=== PATIENT | female | born 1965 | race Caucasian/White ===

== ENCOUNTER 2019-04-02 13:14 | Emergency (ER) | payer MEDICARE, SELFPAY ==
[2019-04-02 13:16] VITALS: BP 119/81; PULSE 89; RESP 16; TEMP 36.8; O2SAT 97; BMI 28.3
--- NOTE | 2019-04-02 13:44 | RAD_ITS ---
STUDY: X-RAY - RIGHT HAND REASON FOR EXAM: Female, 53 years old. Pain TECHNIQUE: 3 view(s) of the hand. COMPARISON: None. FINDINGS: There is a minimally displaced fracture at the base of the distal phalanx of the right thumb. The remainder the visualized osseous structures are intact. There are no radiodense foreign bodies. RAD/Hand Min 3 Views IMPRESSION: Minimally displaced fracture at the base of the proximal phalanx of the right thumb. Electronically Signed: Thanh Mario, at 14:24 EDT Tel , Service support ,
--- NOTE | 2019-04-02 13:44 | CT_ITS ---
STUDY: CT CERVICAL SPINE WITHOUT CONTRAST REASON FOR EXAM: Female, 53 years old. FALL LAST NIGHT/HEAD PAIN NO LOC RADIATION DOSAGE (If Supplied By Facility): CTDIvol = ( 25.54 ) mGy, DLP = ( 620.92 ) mGycm TECHNIQUE: The patient was scanned in a multi detector CT scanner. High resolution transaxial imaging was performed. Sagittal and coronal images were reconstructed. Individualized dose optimization techniques were used for this CT. COMPARISON: None FINDINGS: Normal cervical lordosis. There are no demonstrated fractures of the cervical spine. There is mild multilevel endplate spondylosis of the vertebrae. There is multi-level degenerative disc disease with multi-level disc space narrowing. Normal visualized paraspinous soft tissue structures. CT/Spine Cervical without Contras IMPRESSION: No demonstrated fractures. Electronically Signed: Jeannine Cunningham MD at 14:23 EDT Tel , Service support ,
--- NOTE | 2019-04-02 13:44 | CT_ITS ---
STUDY: CT BRAIN WITHOUT CONTRAST REASON FOR EXAM: Female, 53 years old. FALL LAST NIGHT/HEAD PAIN, NO LOC. RADIATION DOSAGE (If Supplied By Facility): CTDIvol = ( 44.99 ) mGy, DLP = ( 779.24 ) mGycm TECHNIQUE: Transaxial CT imaging of the brain was performed without administration of intravenous contrast material. Individualized dose optimization techniques were used for this CT. COMPARISON: No relevant priors. FINDINGS: Normal soft tissue structures. Normal calvarium. Normal size ventricles and extra-axial spaces for the patient's age. Normal white matter tracts of the cerebral hemispheres. Normal basal ganglia and thalami. Normal brainstem. Normal cerebellum. There is no intracranial hemorrhage. There are no findings of an acute ischemic infarction. Right maxillary sinus disease. CT/Brain/Head without Contrast IMPRESSION: No acute intracranial abnormality Electronically Signed: Jeannine Cunningham MD at 14:20 EDT Tel , Service support ,
--- NOTE | 2019-04-02 13:44 | CT_ITS ---
STUDY: CT FACIAL BONES WITHOUT CONTRAST REASON FOR EXAM: Female, 53 years old. FALL LAST NIGHT/HEAD PAIN NO LOC. RADIATION DOSAGE (If Supplied By Facility): CTDIvol = ( 29.38 ) mGy, DLP = ( 620.92 ) mGycm TECHNIQUE: The patient was scanned in a multi detector CT scanner. Sagittal and coronal images were reconstructed. Individualized dose optimization techniques were used for this CT. COMPARISON: None. FINDINGS: Normal soft tissue structures. Normal orbital schwartz and orbital contents. Normal nasal bones and anterior nasal spine. Normal facial bones. There is no demonstrated fracture. There is a right maxillary sinus moderate mucosal thickening of the right maxillary sinus. There is erosive changes of the right maxilla (axial image #30 series 8). CT/Sinus/Facial Bone IMPRESSION: No demonstrate fractures. Right maxilla bone erosions, likely secondary to long-standing dental disease. Moderate right maxillary sinus disease. Electronically Signed: Jeannine Cunningham MD at 14:31 EDT Tel , Service support ,
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
[2019-04-02 16:18] VITALS: BP 134/85; PULSE 77; RESP 16; O2SAT 96
[2019-04-02] MEDS: oxyCODONE 5 MG Tablet PO (16:25)
[2019-04-02 16:31] VITALS: BP 134/85; PULSE 77; RESP 16; O2SAT 96
== END 2019-04-02 16:31 | disposition home or self-care (01) ==
PROVIDERS: Emergency Provider Emergency Medicine
DX: S62.511A Displaced fracture of proximal phalanx of right thumb, initial encounter for closed fracture (principal); S16.1XXA Strain of muscle, fascia and tendon at neck level, initial encounter; S00.83XA Contusion of other part of head, initial encounter; R40.2412 Glasgow coma scale score 13-15, at arrival to emergency department; W01.198A Fall on same level from slipping, tripping and stumbling with subsequent striking against other object, initial encounter; Y93.K1 Activity, walking an animal; Y92.9 Unspecified place or not applicable; Y99.9 Unspecified external cause status; G89.29 Other chronic pain; M51.36 Other intervertebral disc degeneration, lumbar region; F41.9 Anxiety disorder, unspecified; Z79.899 Other long term (current) drug therapy; F17.200 Nicotine dependence, unspecified, uncomplicated; Z88.2 Allergy status to sulfonamides
CPT/HCPCS: 70450; 70486; 72125; 73130; 99283

== ENCOUNTER 2019-04-05 19:44 | Emergency (ER) | payer MEDICARE, SELFPAY ==
[2019-04-05 19:45] VITALS: BP 123/74; PULSE 87; RESP 15; TEMP 36.8; O2SAT 96; BMI 28.3
--- NOTE | 2019-04-05 20:07 | ED.DCSUM_ITS ---
- ER Visit Summary Date of Service: 04/05/19 Chief Complaint: Fall complaining of pain History of Present Illness: The patient is a 53 F who fell on Saturday and injured her face and reportedly has a broken right thumb. She was CAT scan on Saturday including her brain, face and neck all which were negative. States today she fell again at home over a table and landed flat on the floor. Complaining of pain all over. No LOC. She is on no blood thinners. He has chronic pain due to fibromyalgia and degenerative disc disease. Currently states all she takes at home is Motrin. Currently does not have a physician. Physical Examination: Middle-aged female. No acute distress. Vital signs are stable afebrile. HEENT exam she has resolving bruising on her right forehead and chin from her recent fall. No acute dental injury. Jaw is nontender with no malocclusion. Scalp is nontender. C-spine nontender. Trachea midline. TMs are normal bilaterally no hemotympanum. Lungs clear to auscultation bilaterally. Heart regular rhythm no murmur. Chest wall nontender. No crep itance or subcu air or bruising. Abdomen is soft and nontender. Normal bowel sounds no peritoneal signs. Pelvic girdle is intact. She is moving all 4 extremities. There is no gross bony deformity. She is tenderness to her right thumb which she previously broke. She said she took her splint off. Neurologically she is awake and alert with no focal motor deficits. Back the spine is nontender. There is no signs of trauma. Test Results: None Emergency Department Course and Treatment: Patient had recent imaging. She will be given 2 [place] here for pain. Treatment Plan: Tylenol and Motrin for pain. Ice all sore areas. Follow-up with a local primary care physician. Disposition: Discharge Impression: Acute fall Status post recent fall with resolving contusions History of recent thumb fracture History of chronic pain This note was generated with [employer] dictation software. It may contain incorrect words, spelling, and punctuation that were not noted in review of the chart prior to signing ED Disposition - Plan for ED Patient: Referrals: Care Physician,No Primary [Primary Care Provider] -
--- NOTE | 2019-04-05 20:10 | ED.DEP ---
ED Disposition - Plan for ED Patient: Disposition: Home or Assisted Living Instructions: Contusions (Bruises) Referrals: Steve Sheehan MD [STAFF PHYSICIAN] - 1 Week if not improving Additional Instructions: Ice to all sore areas. Tylenol Motrin for pain. Follow-up if not improving.
[2019-04-05] MEDS: HYDROcodone Bitartrate/Apap 5/325 Tablet PO (20:17)
[2019-04-05 20:25] VITALS: BP 123/74; PULSE 87; RESP 16; O2SAT 96
== END 2019-04-05 20:26 | disposition home or self-care (01) ==
LOC: ED 20:15
PROVIDERS: Emergency Provider Emergency Medicine
DX: S00.83XA Contusion of other part of head, initial encounter (principal); W01.0XXA Fall on same level from slipping, tripping and stumbling without subsequent striking against object, initial encounter; Y93.9 Activity, unspecified; Y92.9 Unspecified place or not applicable; Y99.9 Unspecified external cause status; S62.501D Fracture of unspecified phalanx of right thumb, subsequent encounter for fracture with routine healing; W19.XXXD Unspecified fall, subsequent encounter; M79.7 Fibromyalgia; G89.29 Other chronic pain; Z72.0 Tobacco use; Z79.82 Long term (current) use of aspirin
CPT/HCPCS: 99283

== ENCOUNTER → 2019-07-15 15:42 | Outpatient (CLI) | payer MEDICARE, SELFPAY ==
--- NOTE | 2019-07-15 16:00 | RAD_ITS ---
STUDY: X-RAY - LUMBAR SPINE REASON FOR EXAM: Female, 53 years old. Low back pain TECHNIQUE: 3 view(s) of the lumbar spine were obtained. COMPARISON: None FINDINGS: Normal lumbar lordosis. There is a mild dextroscoliosis of the lumbar spine. There is a normal alignment of the vertebrae. There is multilevel endplate spondylosis of the lumbar vertebrae. There is multi-level degenerative disc disease with multi-level disc space narrowing. The soft tissue structures are unremarkable. RAD/Lumbar Spine 2 or 3 Views IMPRESSION: Degenerative changes of the spine, as detailed above. Electronically Signed: Pedro Pablo Cedeno MD at 16:40 EST , Service support ,
[2019-07-15 17:46] LABS: Amphetamine Urine VISTA NEGATIVE (<1000 ng/mL); Barbiturate Urine VISTA NEGATIVE (< 200 ng/mL); Benzodiazepine Urine VISTA POSITIVE (< 200 ng/mL); Cocaine Urine VISTA NEGATIVE (< 300 ng/mL); Ecstacy Urine VISTA NEGATIVE (< 500 ng/mL); Methadone Urine VISTA NEGATIVE (< 300 ng/mL); PCP Urine VISTA NEGATIVE (< 25 ng/mL); THC Urine VISTA NEGATIVE (< 50 ng/mL); Vista UDS pH Range 5
== END ==
PROVIDERS: Family Provider Internal Medicine; PCP Internal Medicine; Referring Provider Anesthesiology Pain Medicine; Visit Provider Anesthesiology Pain Medicine
DX: F11.20 Opioid dependence, uncomplicated (principal)
CPT/HCPCS: 72100; 80307

== ENCOUNTER → 2019-07-29 09:58 | Outpatient (CLI) | payer MEDICARE, SELFPAY ==
[2019-07-29 10:36] LABS: Amphetamine Urine VISTA NEGATIVE (<1000 ng/mL); Barbiturate Urine VISTA NEGATIVE (< 200 ng/mL); Benzodiazepine Urine VISTA POSITIVE (< 200 ng/mL); Cocaine Urine VISTA NEGATIVE (< 300 ng/mL); Ecstacy Urine VISTA NEGATIVE (< 500 ng/mL); Methadone Urine VISTA NEGATIVE (< 300 ng/mL); PCP Urine VISTA NEGATIVE (< 25 ng/mL); THC Urine VISTA NEGATIVE (< 50 ng/mL); Vista UDS pH Range 6
== END ==
PROVIDERS: Referring Provider Anesthesiology Pain Medicine; Visit Provider Anesthesiology Pain Medicine
DX: F11.20 Opioid dependence, uncomplicated (principal)
CPT/HCPCS: 80307

== ENCOUNTER 2019-08-07 20:52 | Emergency (ER) | payer MEDICARE, SELFPAY ==
[2019-08-07 20:53] VITALS: BP 146/81; PULSE 80; RESP 18; TEMP 36.7; O2SAT 100; BMI 35.0
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
== END 2019-08-07 21:30 | disposition home or self-care (01) ==
LOC: ED 21:20
PROVIDERS: Emergency Provider Emergency Medicine
DX: R11.2 Nausea with vomiting, unspecified (principal); R10.9 Unspecified abdominal pain; M54.9 Dorsalgia, unspecified; G89.29 Other chronic pain; R51 Headache; M79.7 Fibromyalgia; Z72.0 Tobacco use; Z79.899 Other long term (current) drug therapy
CPT/HCPCS: 99282

== ENCOUNTER 2020-10-25 12:34 | Inpatient (IN) | payer MEDICARE, SELFPAY ==
[2020-10-25] VITALS (23 sets, daily range): BP systolic 96–141; BP diastolic 66–98; PULSE 79–105; RESP 14–40; TEMP -17.7–36.6; O2SAT 95–100; BMI 28.0; BMI 38.2
[2020-10-25] MEDS: Heparin Injection (Vial) 5,000 UNIT/ML VIAL 5000 UNIT IV (12:34)
--- NOTE | 2020-10-25 12:40 | ED.VIS.CHEST ---
History of Present Illness Chief Complaint: Chest Pain Informant: Patient, EMS Onset: Hours - 1 Activity at onset: Rest - With relatively sudden onset Timing: Continuous Quality: Heaviness Location: Substernal - Radiating across shoulder blades in the back and transiently to left upper extremity Current Severity: 5/10 Maximum Severity: 10/10 Worsened By: Nothing. Not Worsened By: Breathing Relieved By: NSAIDS - Aspirin given by EMS Associated Symptoms: Diaphoresis, Dyspnea. Negative for: Nausea, Vomiting, Fever, Palpitations Narrative: Patient is a smoker without a history of heart disease, she was resting this morning and had sudden onset of severe chest heaviness and immediately called EMS, they transmitted an EKG consistent with an inferior STEMI and the team was activated prior to patient arrival. She states she is feeling better now than before EMS arrived, she denies any recent illnesses. She does not take aspirin. She denies any recent history of leg pain or swelling. Prior Similar Symptoms: No Recent Illness/Hospitalization: No CVD Risk Factors: Smoking. Negative for: Hypertension, Diabetes, Hypercholesterolemia, Family History 1' </=55 - Past Medical History (1) Anxiety Status: Chronic (2) Chronic low back pain Status: Chronic (3) DDD (degenerative disc disease), lumbar Status: Chronic Past Medical History - Allergies and Home Meds Allergies/Adverse Reactions: Allergies morphine Allergy (Verified 08/07/19 20:56) Swelling Sulfa (Sulfonamide Antibiotics) Allergy (Verified 08/07/19 20:56) Hives valdecoxib [From Bextra] Allergy (Verified 08/07/19 20:56) Hives diazepam [From Valium] Adverse Reaction (Verified 08/07/19 20:56) Itching Primary Care Physician: Care Physician,No Primary [Primary Care Provider] - Surgical History: - - back Smoking Status: Current every day smoker Drugs: None Review of Systems General: Reports: Malaise, Sweats. Denies: Chills, Fever Eyes: Denies: Visual changes - bilaterally, Diplopia ENT: Denies: Rhinorrhea, Sore throat Cardiovascular: Reports: Chest pain. Denies: Palpitations Respiratory: Reports: Dyspnea - gone. Denies: Cough, Dyspnea on exertion Gastrointestinal: Denies: Abdominal pain, Nausea, Vomiting, Diarrhea, Melena, Hematochezia Genitourinary: Denies: Dysuria, Hematuria, Frequency Musculoskeletal: Denies: Back pain, Swelling, Extremity Pain Skin: Denies: Rash, Wounds Neurological: Denies: Headache, Weakness, Numbness Physical Exam Inital Vital Signs reviewed: Yes General: Well nourished, Well developed, No Acute Distress Head: Normocephalic, Atraumatic Eyes: Perrl, EOMI ENT: Moist mucous membranes, No rhinorrhea Neck: Supple, Nontender Cardiovascular: Regular rate, Regular rhythm, No murmurs Respiratory: No distress, CTA bilaterally, Chest nontender Abdomen: Soft, Nontender, Nondistended, Normal bowel sounds Back: Nontender, Normal Inspection Extremities: Nontender, No edema Skin: Normal color, No rash. Negative for: Diaphoresis Neurological: Alert, Oriented x3, Cranial nerves II-XII grossly intact, Normal Strength, Normal Sensation Psychological: Normal affect, Normal Mood Diagnostic/Tx/Re-eval - Rhythm Strip Rhythm Strip: Sinus Rhythm Rate: 75 Ectopy: None - EKG Initial EKG Interpretation: - - Prehospital EKG consistent with inferior STEMI. Approximately 3-[address] elevation with reciprocal anteroseptal ST depression. Treatment: Aspirin - 324 given prehospital, Heparin IV - 5000 units, - - IV fluids PASTORA Risk: ST Deviation >/= 0.5mm Score: 1 - Medical Decision Making I evaluated the patient emergently with EMS and cardiology Dr. Chang At the bedside who discussed taking the patient to the [facility]. He requested 5000 units of heparin and agrees that clinically the patient does not sound like a dissection and is okay without a chest x-ray or blood work and wants to take her directly to the [facility]. Also said that Brilinta will be given in the [facility]. Patient is conversive and her airway and blood pressure are stable, disposition to [facility] with their team. Critical care time (excluding procedures): 30-74 minutes - 33 minutes including time spent discussing with patient and consultants, arranging admission to [facility], and performing direct patient care to bedside/documenting. Exclusive of procedures. ED Disposition - Plan for ED Patient: Disposition: Acute [facility] Diagnosis: STEMI (ST elevation myocardial infarction) Referrals: Care Physician,No Primary [Primary Care Provider] -
--- NOTE | 2020-10-25 12:47 | ED.RN ---
Arrives on EMS cot. Dr Dorsey and Dr Chang present in room with Huang Felix RN, Catalina Kelly, RN, Evelyn Núñez, RN. Patient already has IV access x2 . with NS going upon arrival. Dr Chang gives orders for 5000u heparin and transport to clinical lab assistant at this time. Given and patient taken to clinical lab assistant at 1236 without vitals/triage complete. Pt still on ems cot when leaving ER.
[2020-10-25 13:15] LABS: Absolute Lymphocyte Count 1.97 X10^3/uL (0.83-4.51); Absolute Neutrophil Count 6.5 X10^3/uL (2.0-7.7); Basophil# 0.04 X10^3/uL; Basophil% 0.4 % (0-1); Eosinophil# 0.14 X10^3/uL; Eosinophils% 1.5 % (0-5); Hematocrit 38.2 % (37-47); Hemoglobin 11.8 g/dL (12.0-15.0); Lymphocyte # 1.97 X10^3/ul (4.0); Lymphocyte % 21.1 % (19-41); Mean Corp Hgb Conc 30.9 g/dL (32-36); Mean Corpuscular Hgb 28.2 pg (27.0-32.0); Mean Corpuscular Volume 91.2 fL (81-99); Mean Platelet Vol. 10.9 fl (6.2-12.0); Monocyte# 0.66 X10^3/uL; Monocyte% 7.1 % (0-10); NRBC Flagged by Analyzer 0 % (0-5); Neutrophil # 6.52 X10^3/uL (2.7-7.7); Neutrophil % 69.7 % (47-70); Platelet Count 297 K/mm3 (150-450); RBC Distribution Width CV 13.8 % (11.6-14.6); RBC Distribution Width SD 46.7 fl (35.1-43.9); Red Blood Count 4.19 M/mm3 (4.2-5.4); White Blood Count 9.4 K/mm3 (4.4-11.0)
--- NOTE | 2020-10-25 13:26 | EKG12_ITS ---
Test Reason : POST STEMI Blood Pressure : / mmHG Vent. Rate : 098 BPM Atrial Rate : 098 BPM P-R Int : 156 ms QRS Dur : 078 ms QT Int : 370 ms P-R-T Axes : 057 053 067 degrees QTc Int : 472 ms Normal sinus rhythm Nonspecific ST abnormality Abnormal ECG Confirmed by SOM HOLMAN, SIRI ([id number]), book editor JIGNESH RODARTE ([id number]) on 10/27/2020 1:57:00 PM Referred By: Bari Chang Confirmed By:SIRI KEARNS MD
--- NOTE | 2020-10-25 13:35 | CL.PCI_ITS ---
PCI Cardiac Cath Report PCI Report: Procedure details; 1. Left heart catheterization. 2. Successful percutaneous coronary intervention of the culprit lesion With moderate thrombus in the mid RCA. Predilated with 2.5 x 20 mm balloon, followed by placement of drug-eluting stent Synergy 3 x 32 mm Postdilated using 3.25 x 20 mm NC balloon and achievement of excellent result 3. Preprocedure PASTORA flow in the RCA is #1, with mid RCA stenosis of 70% 4. Postprocedure PASTORA flow in the RCA is#3 with reduction of stenosis in the mid RCA following placement of a stent and postdilatation to 0%. 5. Placement of TR band to maintain hemostasis to the right radial artery arteriotomy site. Preprocedure diagnosis; 54-year-old female who developed severe retrosternal chest pain around 1 hour prior to coming to the ER by the EMS service. She had diaphoresis and sweating No symptoms of dizziness or lightheadedness By time she came to the ER her symptoms of chest pain improved gradually from scale of 10 to scale of 5. Patient has no prior history of myocardial infarction or coronary artery stent, no history of diabetes hypertension However she continues to smoke. called the EMS service who came home and had an EKG showing evidence of ST elevation CT in the inferior lead with reciprocal changes noted in the anterior lead. Patient was given aspirin, evidently she took 2 baby aspirin at home and the EMS service give her additional 2 aspirins. And brought to the ER here at [facility] where right radial artery sheath. Noted the ACT level is low Admission Nurse Coordinator as an emergency. Consent; Risk-benefit of the procedure explained in detail to the patient she elected to proceed informed consent obtained and placed in the chart. Diagnostic and interventional equipment; 1. 6 Kuwaiti sheath placed in the right radial artery 2. JL 3.5, 5 Kuwaiti 3. 6 Kuwaiti JR4 guide catheter ACT level noted around 240 therefore we will give additional 2000 units of heparin 4. Run-through wire 5. Millimeters drug-eluting stent/synergy x 20 mm compliant balloon 6. 3 x 32 mm drug-eluting stent Synergy 7. Postdilatation using 3.25 x 20 mm NC balloon. Procedure in detail; Patient brought to the Admission Nurse Coordinator as an emergency, Access obtained from the right radial artery and placement of 6 Kuwaiti sheath Using a J-wire we will proceed with JL 3.55 Kuwaiti diagnostic catheter placed in the ascending aorta and cannulated the left main coronary artery without difficulty and multiple views of the left coronary system were obtained including LIAN, LESTER cranial and caudal views. Following this we proceeded with the guide catheter which JR4 guide catheter and engaged the right coronary artery identified the culprit lesion which is lesion in the mid RCA with a thrombus and a 70% stenosis We will proceed with general guidewire crossed the lesion. Then followed by predilatation and followed by placement of a drug-eluting stent using the 3 x 32 mm Synergy and postdilated using 3.25 x 20 mm NC balloon and achievement of excellent result with PASTORA-3 flow in the RCA. Symptoms of chest pain resolved and also resolution of the ST segment elevation was noted in the cardiac monitors. Heparin given she was given 5000 of heparin in the ER followed by 3000 units through the right radial artery sheath. ACT level noted to 240 and will give additional 2000 units of heparin. The cocktail used through the radial artery sheath is 2.5 paravermian, 3000 heparin, 200 mcg of nitroglycerin. Patient tolerated the procedure very well with no complication Findings; 1. Left main is normal angiographically bifurcating into left anterior descending and the left circumflex There is no stenosis noted in the left main 2. Left anterior descending artery is a large vessel reach all the way to the apex has abundant septal branches and angiographically there is no obstructive atherosclerosis noted in the left anterior descending artery The left circumflex is moderate-sized vessel and normal Right coronary artery the culprit with moderate amount of thrombus noted in the mid RCA and 70% stenosis with PASTORA I flow, following PCI we achieve PASTORA-3 flow in the RCA with reduction of the stenosis to 0%.. Door to balloon time is 23 minutes and no complication in the Admission Nurse Coordinator. Conclusion and plan; Patient was given Brilinta 180 mg in the Admission Nurse Coordinator she will continue on Brilinta 90 mg twice daily 2. She will continue on a low-dose aspirin 81 mg once a day We will try a low-dose beta-kiara 12.5 mg metoprolol 4. Patient also started on atorvastatin 40 mg once a day 5. Patient advised cessation of smoking echocardiogram will be done prior to discharge. If she remains stable she likely to be discharged on . #6 finding of cardiac catheterization explained in detail to the patient and to the family. Also for continuity of cardiac care plan patient will follow up with the janitorial account manager Dr. Farias as an outpatient Bari Chang MD, [facility], [facility] crop puller
[2020-10-25 13:40] LABS: Anion Gap 3 (5-15); BUN 10 mg/dL (7-18); BUN/Creat Ratio 10.9 RATIO (10-20); Calcium,Total 7.9 mg/dL (8.5-10.1); Chloride 107 mmol/L (98-107); Creatinine, Serum 0.92 mg/dL (0.55-1.02); EST Glomerular Filtration Rate 68 mL/min (>60); Est Glom Filt Rate - Afr Amer 82 mL/min (>60); Glucose 129 mg/dL (74-106); Potassium 3.3 mmol/L (3.5-5.1); Sodium Level 136 mmol/L (136-145)
--- NOTE | 2020-10-25 13:45 | CM.ED ---
SOCIAL WORK STEMI ALERT Responded to STEMI alert. When family arrived, escorted to environmental laboratory technician. Patient had already been taken to ICU. Waiting with family along with Rahul Ray while physician gave updated. This worker spoke with Nursing Drug Abuse Program Coordinator, Charlette and received OK for family to visit with patient in ICU. Family was updated on visitor policy once patient out of ICU. Emotional support provided throughout. Anjelica Carter, MARKET GARDENER, DEPARTMENT MANAGER
[2020-10-25 13:51] LABS: Internal QC Validated? YES +Cl - CLEAR BKGD; Pregnancy, Serum, hCG Quali. NEGATIVE Negative
--- NOTE | 2020-10-25 14:10 | RAD_ITS ---
STUDY: X-RAY CHEST REASON FOR EXAM: Female, 54 years old. stemi, post cath TECHNIQUE: Single AP portable view of the chest. COMPARISON: None. FINDINGS: EKG electrodes are seen. The lungs are clear and expanded. Scattered calcified granulomas. There is no demonstrated pleural abnormality. Normal size heart. Normal mediastinum and mic. Normal visualized pulmonary arteries. Normal visualized aortic arch and descending thoracic aorta. There are degenerative changes of the visualized thoracic spine. Normal visualized ribs, clavicles, and shoulders. There is no demonstrated abnormality of the visualized soft tissue structures of the upper abdomen. RAD/Chest 1 View (Portable) IMPRESSION: Normal x-ray examination of the chest. Electronically Signed: Mitch Wilhelm MD at 14:29 EST , Service support ,
[2020-10-25] MEDS: 0.9% Normal Saline 1,000 ML 100 ML IV (14:33)
--- NOTE | 2020-10-25 14:43 | CRPHASE1_ITS ---
Patient Communication Former Patient:: Phase I PHII Cardiac Rehab Discussed with Patient:: Yes Guide to Cardiac Rehab Given to Patient:: Yes Cardiac Rehab Facility Choice List Given to Patient:: Yes Choice Program Other:: Communication Given to [facility] Paleontology Teacher:: Bari Chang Refer Phase II Cardiac Rehab:: Yes Sessions:: 36 sessions - 3 days/wk, 12 weeks Cardiac Rehabilitation Info Cardiac Rehabilitation Program Information: Cardiac Rehabilitation is important for patients like you who are recovering from a heart problem. Cardiac rehabilitation programs are recognized as integral to the continued care of the patient with coronary heart disease. The cardiac rehabilitation program is designed to optimize a patient's physical, psychological, and social functioning. Health child care specialist work in cardiac rehabilitation programs and assist you with getting the treatments you need to get stronger and healthier - like exercise, healthy eating habits, and medications. Cardiac rehabilitation has been show to help people with heart problems live longer and have better life enjoyment than people who do not go to cardiac rehabilitation. Please contact the Cardiac Rehabilitation Program at [facility] at in two weeks if you have not heard from them.
--- NOTE | 2020-10-25 14:44 | CRPH1.INST_ITS ---
General Education CAD and cardiac anatomy and function:: Patient communicates acknowledgment, Family communicates acknowledgment, Needs reinforcement Explanation of diagnoses and procedures:: Patient communicates acknowledgment, Family communicates acknowledgment, Needs reinforcement Sign/Symptoms of AR:: Patient communicates acknowledgment, Family communicates acknowledgment, Needs reinforcement Antiplatelet therapy: Patient communicates acknowledgment, Family communicates acknowledgment, Needs reinforcement Proper use of NTG-SL: Patient communicates acknowledgment, Family communicates acknowledgment, Needs reinforcement Emergency procedures and activation of EMS: Patient communicates acknowledgment, Family communicates acknowledgment, Needs reinforcement Compliance of all prescribed medications: Patient communicates acknowledgment, Family communicates acknowledgment, Needs reinforcement Smoking Patient Nicotine/Smoking Risk Factors Are:: Cigarettes Recommendations Include:: Smoking cessation strategies/Smoking packet, Second- hand smoke recommendation, Participation in a smoking cessation program Nicotine/Smoking Response Code:: Patient communicates acknowledgment, Family communicates acknowledgment, Needs reinforcement Dyslipidemia Recommendations Include:: Lipid profile not available Dyslipidemia Response Code:: Patient communicates acknowledgment, Family communicates acknowledgment, Needs reinforcement Overweight/Obesity Patient Overweight/Obesity Risk Factors Are:: BMI Normal [18-25 & < 65 years old] Recommendations Include:: Weight loss of 5-10%, Reduced calorie diet, Exercise 5-7 times/week Overweight/Obesity:: Patient communicates acknowledgment, Family communicates acknowledgment, Needs reinforcement Hypertension Patient Hypertension Risk Factors Are:: No documented hx of HTN Recommendations Include:: Maintain BP <130/85, Decrease/maintain normal body weight, Moderation of ETOH Hypertension:: Patient communicates acknowledgment, Family communicates acknowledgment, Needs reinforcement Diabetes Patient Diabetes Risk Factors Are:: No documented hx of diabetes Sedentary Patient Sedentary Risk Factors Are:: Lack of regular exercise Recommendations Include:: Aerobic exercise 5-7 times/week for 20-30 minutes continuously, Benefits of regular exercise, Discussed home walking program, Monitored Outpatient Cardiac Rehab Sedentary Response Code:: Patient communicates acknowledgment, Family communicates acknowledgment, Needs reinforcement Stress Patient Stress Risk Factors Are:: Patient denies stress as a risk factor
--- NOTE | 2020-10-25 15:48 | HP.PCM_ITS ---
History of Present Illness Date of Admission: 10/25/20 Chief Complaint: Chest pain The patient is a 54 year old F with a PMH as below who presents to the hospital with severe retrosternal chest pain at around 11 today. She presented to the ER and was diaphoretic and sweating and she had an EKG which demonstrated an ST elevation in the inferior leads with reciprocal changes in the anterior leads. She was given aspirin and taken straight to the Commissary Clerk. She was found to have a thrombus in the mid RCA and had drug-eluting stent placed in her RCA. Her chest pain is now resolved. Past Medical History Past Medical History (Chronic Problems): Chronic Problems Anxiety (Chronic) Chronic low back pain (Chronic) DDD (degenerative disc disease), lumbar (Chronic) Allergies morphine Allergy (Verified 08/07/19 20:56) Swelling Sulfa (Sulfonamide Antibiotics) Allergy (Verified 08/07/19 20:56) Hives valdecoxib [From Bextra] Allergy (Verified 08/07/19 20:56) Hives diazepam [From Valium] Adverse Reaction (Verified 08/07/19 20:56) Itching Home Medications: Ambulatory Orders Medication Instructions Recorded Oxycodone Myristate [Xtampza ER] 9 mg PO BID 08/07/19 Sertraline HCl [Zoloft] 100 mg PO DAILY 08/07/19 Tizanidine HCl [Zanaflex] 4 mg PO QHS PRN 08/07/19 Surgical History: - - back Smoking Status: Current every day smoker Tobacco Use: Cigarettes Alcohol: None Drugs: None - *Family History Maternal History Items: Cancer Paternal History Items: Stroke Review of Systems Constitutional: Denies: Chills, Fever, Weight Change HEENT: Denies: Head Aches, Sinus Congestion, Sinus Drainage Cardiovascular: Reports: Chest Pain. Denies: Palpitations Respiratory: Reports: Shortness of Breath. Denies: Cough, Shortness of breath at rest, Sputum production Gastrointestinal: Denies: Abdominal Pain, Nausea, Vomiting Genitourinary: Denies: Dysuria Musculoskeletal: Denies: Joint Pain, Joint Tenderness Skin: Denies: Rash, Wounds Neurological: Denies: Numbness, Tingling, Focal weakness Psychiatric: Denies: Anxiety, Depression Hematologic/ Lymphatic: Denies: Easy Bruising, Easy Bleeding VTE Information - Inpt Only VTE Present on Admission: No Patient Problems: Active and Suspected Problems STEMI (ST elevation myocardial infarction) (Acute) - Physical Exam Vitals/I&O's: Vital Signs Temp Pulse Resp BP Pulse Ox 0 F L 95 40 H 136/82 H 100 10/25/20 12:51 10/25/20 12:51 10/25/20 12:51 10/25/20 12:51 10/25/20 12:51 Oxygen Flow Rate (L/min) 2 Oxygen Delivery Method Nasal Cannula Weight: 230 lb Body Mass Index (BMI) 38.2 Intake and Output for Last 24 Hours 10/23/20 10/24/20 10/25/20 23:59 23:59 23:59 Intake Total 500 / 500 Balance 500 / 500 General: Alert, Oriented x3, Cooperative, No apparent distress HEENT: Atraumatic, PERRLA, EOMI, Normocephalic Oral: Moist Mucosa Neck: Supple, No JVD Lungs: Clear to auscultation, Normal air movement, No rhonchi, No wheeze, No rales Cardiovascular: Regular rate, Regular Rhythm, Normal S1, Normal S2, No murmurs Abdomen: Soft, Non Tender, Non-Distended, No Hepato-splenomegaly Extremities: No edema, Capillary Refill Less than 3 Seconds Skin: No rashes, No breakdown Neurological: Neuro grossly intact, Sensory exam intact to light touch and pain Psych/Mental Status: Normal Affect, Appropriate Laboratory Results 10/25/20 12:52: WBC 9.4, RBC 4.19 L, Hgb 11.8 L, Hct 38.2, MCV 91.2, MCH 28.2, MCHC 30.9 L, RDW Std Deviation 46.7 H, RDW Coeff of Brooke 13.8, Plt Count 297, MPV 10.9, Immature Gran % (Auto) 0.200, Neut % (Auto) 69.7, Lymph % (Auto) 21.1, [place] % (Auto) 7.1, Eos % (Auto) 1.5, Baso % (Auto) 0.4, Absolute Neuts (auto) 6.5, Absolute Lymphs (auto) 1.97, Nucleated RBC % 0 10/25/20 12:52: Sodium 136, Potassium 3.3 L, Chloride 107, Carbon Dioxide 26.0, Anion Gap 3 L, BUN 10, Creatinine 0.92, Est GFR (MDRD) Af Amer 82, Est GFR (MDRD) Non-Af 68, BUN/Creatinine Ratio 10.9, Glucose 129 H, Calcium 7.9 L, Troponin I 0.119 H 10/25/20 12:52: Serum , Qual NEGATIVE Current Medications Aspirin (Aspirin E.C. 81 Mg Tablet) 81 mg PO DAILY@0800 [facility] Atorvastatin Calcium (Atorvastatin Calcium 40 Mg Tablet) 40 mg PO QHS [facility] Atropine Sulfate (Atropine Sulfate 1 Mg/10 Ml Syringe) 0.5 mg IV UD PRN PRN Reason: HR <50 bpm Sodium Chloride () 1,000 mls @ 100 mls/hr IV .Q10H ANNE Stop: 10/25/20 23:24 Last Admin: 10/25/20 14:33 Dose: 100 mls/hr Documented by: Metoprolol Tartrate (Metoprolol Tartrate 25 Mg Tablet) 12.5 mg PO BID [facility] Sodium Chloride (0.9% Saline Lock 10 Ml Syringe) 10 - 40 ml IV UD PRN PRN Reason: SALINE FLUSH Ticagrelor (Ticagrelor 90 Mg Tablet) 90 mg PO BID [facility] Assessment/Plan All Active Problems STEMI (ST elevation myocardial infarction) (Acute) 1. STEMI/tobacco abuse -Successful MELQUIADES to RCA -Continue with aspirin, Brilinta, metoprolol, Lipitor per cardiology -Appreciate cardiology's assistance -We will need to have case management evaluate the cause of Brilinta prior to discharge -Encouraged tobacco cessation, will will give a nicotine patch 2. Anxiety/depression -Stable -Continue Zoloft 3. Chronic back pain -Stable -Continue with oxycodone and Zanaflex DVT: Low risk Inpatient E&M: 04377 Init Hosp L2
--- NOTE | 2020-10-25 16:51 | CHAPLAIN ---
Type of Pastoral Visit ___ Initial Visit ___ Follow-up Visit ___ On-call Visit ___ General Patient Visit ___ Spiritual Assessment ___ Family Conference ___ Bereavement _x__ Rapid Response ___ Code Blue ___ Other (describe below) Pastoral Care Referral From ___ Patient ___ Family ___ Nurse ___ Physician ___ Aviation Medicine Specialist ___ Isotope Hydrologist _x__ Other (describe below) Sacrament/Intervention _x__ Active listening ___ Anointing ___ Congregation ___ Bereavement ___ Communion ___ Carmela exploration ___ ___ Life review ___ Prayer ___ Reconciliation ___ Sacrament of Sick _x__ Supportive presence ___ Wedding ___ Other (describe below) Pastoral Comments responded to stemi alert; saw patient only a moment before she was taken to Driver License Reviewing Officer; waited for family to arrive; spouse and DIL came and escorted them to Driver License Reviewing Officer along with SW; sat with family until further information given and DR came to see them; SW took them to ICU at that time
--- NOTE | 2020-10-25 17:00 | CHAPLAIN ---
Type of Pastoral Visit _x__ Initial Visit ___ Follow-up Visit ___ On-call Visit ___ General Patient Visit ___ Spiritual Assessment ___ Family Conference ___ Bereavement ___ Rapid Response ___ Code Blue ___ Other (describe below) Pastoral Care Referral From ___ Patient ___ Family ___ Nurse ___ Physician ___ Pallet Assembler ___ Risk Assessment Consultant _x__ Other (describe below) Sacrament/Intervention _x__ Active listening ___ Anointing ___ Jehovah'S Witness ___ Bereavement ___ Communion ___ Carmela exploration ___ ___ Life review ___ Prayer ___ Reconciliation ___ Sacrament of Sick ___ Supportive presence ___ Wedding ___ Other (describe below) Pastoral Comments saw patient post heart cath; pt is relieved and feeling much better; pt is eating; offer of ongoing support
[2020-10-25] MEDS: cycloBENZAPRine HCl 10 MG Tablet PO (21:16)
[2020-10-25] MEDS: Metoprolol Tartrate 25 MG Tablet 12.5 MG PO (21:16)
[2020-10-25] MEDS: busPIRone 15 MG TABLET PO (21:17)
[2020-10-25] MEDS: Atorvastatin Calcium 40 MG Tablet PO (21:17)
[2020-10-25] MEDS: Pregabalin 75 MG Capsule 300 MG PO (21:18)
[2020-10-26] VITALS (22 sets, daily range): BP systolic 92–125; BP diastolic 59–79; PULSE 73–93; RESP 15–19; TEMP 36.1–36.8; O2SAT 96–100
[2020-10-26 03:55] LABS: Hematocrit 41.8 % (37-47); Hemoglobin 12.8 g/dL (12.0-15.0); Mean Corp Hgb Conc 30.6 g/dL (32-36); Mean Corpuscular Hgb 28.6 pg (27.0-32.0); Mean Corpuscular Volume 93.5 fL (81-99); Mean Platelet Vol. 10.9 fl (6.2-12.0); Platelet Count 321 K/mm3 (150-450); RBC Distribution Width CV 13.9 % (11.6-14.6); RBC Distribution Width SD 47.8 fl (35.1-43.9); Red Blood Count 4.47 M/mm3 (4.2-5.4); White Blood Count 7.4 K/mm3 (4.4-11.0)
[2020-10-26 04:12] LABS: ALB/GLOB Ratio 0.8 RATIO (0.9-2.4); AST(SGOT) 41 U/L (15-37); Alanine Aminotransfer ALT/SGPT 17 U/L (13-56); Albumin, Serum 3.3 g/dL (3.2-5.0); Alkaline Phosphatase 102 U/L (45-117); Anion Gap 2 (5-15); BUN 13 mg/dL (7-18); BUN/Creat Ratio 14.2 RATIO (10-20); Calcium,Total 8.2 mg/dL (8.5-10.1); Chloride 111 mmol/L (98-107); Cholesterol 215 mg/dL (200); Creatinine, Serum 0.92 mg/dL (0.55-1.02); EST Glomerular Filtration Rate 68 mL/min (>60); Est Glom Filt Rate - Afr Amer 83 mL/min (>60); Estimated Creatinine Clearance 64.37 ml/min; Globulin 3.9 g/dL (2.2-4.2); Glucose 95 mg/dL (74-106); High Density Lipoprotein 60 mg/dL; Potassium 4.1 mmol/L (3.5-5.1); Protein, Total 7.2 g/dL (6.4-8.2); Sodium Level 141 mmol/L (136-145); Triglycerides 179 mg/dL; Very Low Density Lipoprotein 36 mg/dL (5-40)
[2020-10-26] MEDS: Pregabalin 75 MG Capsule 300 MG PO ×2 (05:15→20:27)
[2020-10-26] MEDS: busPIRone 15 MG TABLET PO ×3 (05:16→20:28)
[2020-10-26] MEDS: 0.9% Saline Lock 10 ML Syringe IV (05:16)
[2020-10-26] MEDS: TICAGRELOR 90 MG TABLET PO ×2 (09:10→20:29)
[2020-10-26] MEDS: Aspirin E.C. 81 MG Tablet PO (09:10)
[2020-10-26] MEDS: Sertraline 100 MG Tablet PO (09:10)
[2020-10-26] MEDS: oxyCODONE 5 MG Tablet PO ×2 (09:12→18:10)
--- NOTE | 2020-10-26 09:45 | CASEMGMT ---
RN CM HASHER OPERATOR CM to room to meet with patient for initial transition planning/care coordination assessment. BOBBY JUDGE introduced self and role at [facility]. Pt voices understanding and consents to assessment at this time. Pt sitting up in recliner chair in room in no distress at this time. Pt is A/O at this time and answers all questions appropriately. Care providers, pharmacy, and demographics verified/updated at this time. PCP: Has appt w/PA Kemal Hurley 11/01 @ 0800 to get established as a new pt. Specialists: none. Plans to go to [facility] as an OP. Preferred Pharmacy: [facility] Insurance: [facility] Prescription Benefit: none. Per Dr Chang/cardiology note, pt to discharge home on Brilinta. Pt given 30-day Brilinta savings card and instructions on use. She was made aware to discuss options with her source water protection specialist of changing to a more affordable medication after the 30-day supply runs out. She voices understanding. Call placed to nurse Abi @ [facility]. She was made aware pt has no Rx coverage and that she was given 30-day Brilinta savings card. Living Will/HPOA: has both LW and Healthcare POA, who is her son, Dominic Buchanan LNOK: , Clemencia. Son/POA, Dominic. Sister, Swapnil Living Arrangements: Lives w/her in one-story home w/one step to enter. Independent w/ADL's and IADL's most of the time. States if she is having a lot of back/leg pain, then she uses a walker at times. Transportation: Pt states drives self and states no transportation concerns at this time. also drives DME: States has a walker only. Pt states no need for further DME at this time. HHC/SNF: No history of either and denies needs. Pt wishes to return home and states has no concerns with going home at time of discharge. CM to follow for any further discharge planning/needs. Pt voices no further concerns/needs at this time. Advised pt to ask for CM if any further questions/concerns/needs arise. Voices understanding. PLAN: Home w/ and discharge plans in place. Eboni BOLANOS RN, CM
--- NOTE | 2020-10-26 10:01 | ECHOD_ITS ---
Reason For Study: s/p RI Procedure This was a 2D Doppler, Color Flow transthoracic echocardiogram. The study was technically difficult. Exam performed portable in ICU/CCU. Left Ventricle Normal LV size. Segmental dysfunction with preserved ejection fraction (see wall motion). The estimated ejection fraction is 55 %. No evidence for diastolic dysfunction. Infero-Basal: Hypokinetic. Mid-Inferior: Hypokinetic. Right Ventricle Normal RV size. Normal systolic function. Atria Normal left atrium. Normal right atrium. No doppler evidence for ASD. Bubble contrast study negative for right to left interatrial shunt. Mitral Valve There is no mitral annular calcification. Anterior leaflet diffuse mitral valve thickening. Trivial mitral valve insufficiency. Tricuspid Valve Normal tricuspid valve. Trivial tricuspid valve insufficiency. Unable to estimate RV systolic pressure/pulmonary artery pressure due to technically difficult study. Aortic Valve Trisinus/trileaflet aortic valve. Normal aortic valve. Pulmonic Valve The pulmonic valve is not well visualized. Trivial pulmonic valve insufficiency. Great Vessels Normal sized aortic root. Pericardium/Pleural No pericardial effusion. Medication Performed a rapid injection of agitated mix of 9 cc saline and 1cc air to assess for atrial septal defect. MMode/2D Measurements & Calculations LVIDd: 4.7 cm IVSd: 1.0 cm Ao root diam: 2.9 cm LVIDs: 3.6 cm LVPWd: 1.0 cm RVDd: 3.1 cm FS: 22.6 % LAV(MOD-bp): 42.3 ml LVAd ap4: 23.7 cm2 SV(MOD-sp4): 34.4 ml LAV(MOD-bp) Indexed: 20.7 ml/m2 EDV(MOD-sp4): 68.4 ml LAV(MOD-sp2): 40.0 ml EDV(sp4-el): 67.4 ml LAV(MOD-sp4): 44.4 ml LVAs ap4: 14.9 cm2 ESV(MOD-sp4): 34.0 ml ESV(sp4-el): 32.5 ml EF(MOD-sp4): 50.3 % EF(sp4-el): 51.8 % SV(sp4-el): 35.0 ml LA A4 area: 15.9 cm2 LA dimension(2D): 3.5 cm RA A4 area: 11.6 cm2 Doppler Measurements & Calculations MV E max louis: 53.6 cm/sec Lat Peak E' Louis: 10.7 cm/sec Med Peak E' Louis: 4.9 cm/sec MV A max louis: 74.7 cm/sec E/E' lat: 5.0 E/E' med: 10.9 MV E/A: 0.72 Ao V2 max: 121.9 cm/sec LV V1 max: 97.0 cm/sec PA V2 max: 75.5 cm/sec Ao max P.9 mmHg LV V1 max P.8 mmHg Ao V2 mean: 80.2 cm/sec Ao mean P.9 mmHg Ao V2 VTI: 19.5 cm Interpretation Summary The study was technically difficult. Segmental dysfunction with preserved ejection fraction (see wall motion). The estimated ejection fraction is 55 %. Anterior leaflet diffuse mitral valve thickening. Trivial mitral valve insufficiency. Trivial tricuspid valve insufficiency. Trivial pulmonic valve insufficiency. Unable to estimate RV systolic pressure/pulmonary artery pressure due to technically difficult study. No evidence for diastolic dysfunction. Ordering Physician: Bari Chang Referring Physician: Michael Hurley Performed By: Cadence Acevedo, AUSTEN, RVT
--- NOTE | 2020-10-26 13:06 | PN.CARD_ITS ---
Subjectve: 54-year-old patient, presented with acute ST elevation myocardial infarction/inferior Underwent successful percutaneous coronary intervention of the culprit lesion Which is thrombus involving the mid RCA with successful PCI and placement of drug-eluting stent and postdilated Using 3.25 x 20 mm NC balloon and achievement of excellent result with PASTORA-3 flow in the RCA. Patient admitted to the ICU and remained stable clinically with no further episode of chest pain I reviewed all her current medication patient will be on dual antiplatelet thera py with Brilinta aspirin, low-dose beta-kiara, statin and low-dose IRMA inhibitor wet cotton feeder showed underlying normal sinus rhythm, no further episode of chest pain Patient had a history of smoking and advised cessation of smoking. Following discharge we will plan for cardiac rehab program and patient will be followed by Dr. Mark Farias to establish for cardiac service and continuity of cardiac care plan. Cardiac care plan discussed in detail with the patient, and nursing staff Objective: Vital Signs Temp Pulse Resp BP Pulse Ox 98.1 F 90 19 H 125/69 H 99 10/26/20 12:00 10/26/20 12:00 10/26/20 12:00 10/26/20 12:00 10/26/20 12:00 Oxygen Flow Rate (L/min) 2 Oxygen Delivery Method Room Air Weight: 215 lb 6.266 oz Body Mass Index (BMI) 38.2 Intake and Output for Last 24 Hours 10/24/20 10/25/20 10/26/20 23:59 23:59 23:59 Intake Total 1859.67 / 1859.67 1070 / 1070 Output Total 1100 / 1100 1325 / 1325 Balance 759.67 / 759.67 -255 / -255 General: Healthy Appearing, Awake, Alert HEENT: PERRL, EOMI, Sclera Non Icteric Neck: Supple, Good ROM, No Lymph Node Enlargement Cardiovascular: Regular Rhythm, Normal S1, Normal S2, No Murmurs, No Rubs, No Gallops 10/25/20 12:52: WBC 9.4, RBC 4.19 L, Hgb 11.8 L, Hct 38.2, MCV 91.2, MCH 28.2, MCHC 30.9 L, Plt Count 297, MPV 10.9, Immature Gran % (Auto) 0.200, Neut % (Auto) 69.7, Lymph % (Auto) 21.1, [place] % (Auto) 7.1, Eos % (Auto) 1.5, Baso % (Auto) 0.4, Absolute Neuts (auto) 6.5, Nucleated RBC % 0 10/25/20 12:52: Sodium 136, Potassium 3.3 L, Chloride 107, Carbon Dioxide 26.0, Anion Gap 3 L, BUN 10, Creatinine 0.92, Est GFR (MDRD) Af Amer 82, Est GFR (MDRD) Non-Af 68, BUN/Creatinine Ratio 10.9, Glucose 129 H, Calcium 7.9 L, Troponin I 0.119 H 10/26/20 03:50: WBC 7.4, RBC 4.47, Hgb 12.8, Hct 41.8, MCV 93.5, MCH 28.6, MCHC 30.6 L, Plt Count 321, MPV 10.9 10/26/20 03:50: Sodium 141, Potassium 4.1, Chloride 111 H, Carbon Dioxide 28.0, Anion Gap 2 L, BUN 13, Creatinine 0.92, Est GFR (MDRD) Af Amer 83, Est GFR (MDRD) Non-Af 68, BUN/Creatinine Ratio 14.2, Glucose 95, Calcium 8.2 L, Total Bilirubin 0.20, Triglycerides 179, Cholesterol 215 H, LDL Cholesterol 119, VLDL Cholesterol 36, HDL Cholesterol 60 Rhythm: Cardiac telemetry reveals underlying normal sinus rhythm. EKG: Initial EKG on arrival to hospital showed ST elevation in the inferior lead with reciprocal change in V1 V2 Following the PCI and stenting of the RCA ST segment normalized and no further episode of chest pain. Medical Necessity - Tobacco Use Smoking Status: Current every day smoker Tobacco Use: Cigarettes
--- NOTE | 2020-10-26 13:30 | EKG12_ITS ---
Test Reason : AM Blood Pressure : / mmHG Vent. Rate : 087 BPM Atrial Rate : 087 BPM P-R Int : 138 ms QRS Dur : 070 ms QT Int : 398 ms P-R-T Axes : 065 018 -36 degrees QTc Int : 478 ms Normal sinus rhythm T wave abnormality, consider inferior ischemia Abnormal ECG Confirmed by SOM HOLMAN, SIRI ([id number]), visual effects editor JIGNESH RODARTE ([id number]) on 10/27/2020 1:56:04 PM Referred By: Bari Chang Confirmed By:SIRI KEARNS MD
--- NOTE | 2020-10-26 13:38 | PCM.PROGNOTE ---
Patient Problems: Active and Suspected Problems (Last Updated 10/25/20 @ 17:24 by Sugar Nolasco) STEMI (ST elevation myocardial infarction) (Acute) Subjective: Chief complaint: Follow-up after admission for acute ST elevation [place]. Patient seen and examined. No acute events overnight. Day, she denied any more chest pain. Denied shortness of breath or palpitation. She mentioned that she was dizzy when she stood up and walked to the bathroom. Her vital signs are stable. - Physical Exam Vitals/I&O's: Vital Signs Temp Pulse Resp BP Pulse Ox 98.1 F 90 19 H 125/69 H 99 10/26/20 12:00 10/26/20 12:00 10/26/20 12:00 10/26/20 12:00 10/26/20 12:00 Oxygen Flow Rate (L/min) 2 Oxygen Delivery Method Room Air Weight: 215 lb 6.266 oz Body Mass Index (BMI) 38.2 Intake and Output for Last 24 Hours 10/24/20 10/25/20 10/26/20 23:59 23:59 23:59 Intake Total 1859.67 / 1859.67 1070 / 1070 Output Total 1100 / 1100 1325 / 1325 Balance 759.67 / 759.67 -255 / -255 General: Alert, Oriented x3, Cooperative, No apparent distress HEENT: Atraumatic, PERRLA, EOMI, Normocephalic Oral: Moist Mucosa, No Gingival or Mucosal Lesions/ Ulcerations Neck: Supple, No JVD, Negative Carotid Bruits, Trachea Midline, Thyroid Normal Size and Texture Lungs: Clear to auscultation, Normal air movement, No rhonchi, No wheeze, No rales Cardiovascular: Regular rate, Regular Rhythm, Normal S1, Normal S2, PMI Normal Abdomen: Bowel Sounds Present, Soft, Non Tender, Non-Distended, No Hepato-splenomegaly Extremities: No clubbing, No cyanosis, No edema Skin: No rashes, No breakdown Lymphatic: No Cervical, Supraclavicular, or Inguinal Adenopathy Neurological: Cranial nerves II-XII grossly intact, Motor Exam 5/5 strength throughout Psych/Mental Status: Normal Affect, Appropriate, Alert and oriented to time, place, person, mood and affect Laboratory Results 10/25/20 12:52: Sodium 136, Potassium 3.3 L, Chloride 107, Carbon Dioxide 26.0, Anion Gap 3 L, BUN 10, Creatinine 0.92, Est GFR (MDRD) Af Amer 82, Est GFR (MDRD) Non-Af 68, BUN/Creatinine Ratio 10.9, Glucose 129 H, Calcium 7.9 L, Troponin I 0.119 H 10/25/20 12:52: Serum , Qual NEGATIVE 10/26/20 03:50: WBC 7.4, RBC 4.47, Hgb 12.8, Hct 41.8, MCV 93.5, MCH 28.6, MCHC 30.6 L, RDW Std Deviation 47.8 H, RDW Coeff of Brooke 13.9, Plt Count 321, MPV 10.9 10/26/20 03:50: Sodium 141, Potassium 4.1, Chloride 111 H, Carbon Dioxide 28.0, Anion Gap 2 L, BUN 13, Creatinine 0.92, Estim Creat Clear Calc 64.37, Est GFR (MDRD) Af Amer 83, Est GFR (MDRD) Non-Af 68, BUN/Creatinine Ratio 14.2, Glucose 95, Calcium 8.2 L, Total Bilirubin 0.20, AST 41 H, ALT 17, Alkaline Phosphatase 102, Total Protein 7.2, Albumin 3.3, Globulin 3.9, Albumin/Globulin Ratio 0.8 L, Triglycerides 179, Cholesterol 215 H, LDL Cholesterol 119, VLDL Cholesterol 36, HDL Cholesterol 60 Current Medications Alprazolam (Alprazolam 0.5 Mg Tablet) 1 mg PO DAILY PRN PRN PRN Reason: ANXIETY/RESTLESSNESS/SLEEP Aspirin (Aspirin E.C. 81 Mg Tablet) 81 mg PO DAILY@0800 [facility] Last Admin: 10/26/20 09:10 Dose: 81 mg Documented by: Atorvastatin Calcium (Atorvastatin Calcium 40 Mg Tablet) 40 mg PO QHS [facility] Last Admin: 10/25/20 21:17 Dose: 40 mg Documented by: Atropine Sulfate (Atropine Sulfate 1 Mg/10 Ml Syringe) 0.5 mg IV UD PRN PRN Reason: HR <50 bpm Buspirone HCl (Buspirone 15 Mg Tablet) 15 mg PO TID [facility] Last Admin: 10/26/20 13:06 Dose: 15 mg Documented by: Cyclobenzaprine HCl (Cyclobenzaprine Hcl 10 Mg Tablet) 10 mg PO QHS [facility] Last Admin: 10/25/20 21:16 Dose: 10 mg Documented by: Metoprolol Tartrate (Metoprolol Tartrate 25 Mg Tablet) 12.5 mg PO BID [facility] Last Admin: 10/26/20 09:21 Dose: Not Given Documented by: Nicotine (Nicotine 14 Mg Patch) 14 mg TD DAILY [facility] Last Admin: 10/26/20 09:10 Dose: 14 mg Documented by: Oxycodone HCl (Oxycodone 5 Mg Tablet) 5 mg PO TID PRN PRN PRN Reason: Pain Score 1-10 Last Admin: 10/26/20 09:12 Dose: 5 mg Documented by: Pregabalin (Pregabalin 75 Mg Capsule) 300 mg PO BID [facility] Sertraline HCl (Sertraline 100 Mg Tablet) 100 mg PO DAILY [facility] Last Admin: 10/26/20 09:10 Dose: 100 mg Documented by: Sodium Chloride (0.9% Saline Lock 10 Ml Syringe) 10 - 40 ml IV UD PRN PRN Reason: SALINE FLUSH Last Admin: 10/26/20 05:16 Dose: 10 ml Documented by: Ticagrelor (Ticagrelor 90 Mg Tablet) 90 mg PO BID [facility] Last Admin: 10/26/20 09:10 Dose: 90 mg Documented by: Medical Necessity - Tobacco Use Smoking Status: Current every day smoker Tobacco Use: Cigarettes Assessment/Plan All Active Problems (Last Updated 10/25/20 @ 17:24 by Sugar Nolasco) STEMI (ST elevation myocardial infarction) (Acute) This is a 54 years old female patient presented to the emergency room because of chest pain, found to have acute STEMI with inferior leads ST elevation and reciprocal ST segment depression, underwent emergent cardiac catheterization, found to have mid RCA thrombus status post PTCA/MELQUIADES to mid RCA. #[address] elevation UT: Status post emergent cardiac catheterization, PTCA/MELQUIADES to mid RCA, culprit lesion was moderate thrombus of the mid RCA. Repeat EKG from today showed no acute new changes and resolution of the ST elevation on inferior leads. Patient denied any chest pain. She is on aspirin, statins, Brilinta and started on metoprolol. She was disease morning but improved. Vital signs are stable. 2D echocardiogram ordered, awaiting the report. Cardiology on the case. Plan: Continue same treatment, transfer to PCU, anticipate discharge home tomorrow. #2 depression and anxiety: Stable, continue BuSpar and Zoloft. #3 chronic back pain: No complaints, continue Flexeril, Lyrica and OxyIR as needed. #4 DVT prophylaxis: Low risk patient, no prophylaxis indicated. This note was generated with OneTouchation software. It may contain incorrect words, spelling, and punctuation that were not noted in checking the note before signing. Inpatient E&M: 88419 Subs Hosp L2
[2020-10-26] MEDS: ALPRAZolam 0.5 MG Tablet 1 MG PO (13:43)
[2020-10-26] MEDS: cycloBENZAPRine HCl 10 MG Tablet PO (20:28)
[2020-10-26] MEDS: Atorvastatin Calcium 40 MG Tablet PO (20:28)
[2020-10-26] MEDS: Metoprolol Tartrate 25 MG Tablet 12.5 MG PO (20:29)
[2020-10-27] VITALS (8 sets, daily range): BP systolic 106–116; BP diastolic 74–80; PULSE 74–83; RESP 16; TEMP 36.2–36.4; O2SAT 96–97
[2020-10-27] MEDS: oxyCODONE 5 MG Tablet PO (05:18)
[2020-10-27] MEDS: busPIRone 15 MG TABLET PO (05:18)
[2020-10-27] MEDS: Metoprolol Tartrate 25 MG Tablet 12.5 MG PO (08:17)
[2020-10-27] MEDS: Aspirin E.C. 81 MG Tablet PO (08:17)
[2020-10-27] MEDS: Sertraline 100 MG Tablet PO (08:17)
[2020-10-27] MEDS: TICAGRELOR 90 MG TABLET PO (08:17)
[2020-10-27] MEDS: Pregabalin 75 MG Capsule 300 MG PO (08:23)
--- NOTE | 2020-10-27 10:00 | EKG12_ITS ---
Test Reason : AM Blood Pressure : / mmHG Vent. Rate : 078 BPM Atrial Rate : 078 BPM P-R Int : 146 ms QRS Dur : 070 ms QT Int : 412 ms P-R-T Axes : 070 045 -56 degrees QTc Int : 469 ms Normal sinus rhythm T wave abnormality, consider inferior ischemia Abnormal ECG When compared with ECG of 26-OCT-2020 05:49, MANUAL COMPARISON REQUIRED, DATA IS UNCONFIRMED Confirmed by STEPHON HOLMAN, PATRICIA ([id number]), school photograph editor SEVERIANO BRYSON ([id number]) on 10/28/2020 8:23:14 AM Referred By: Bari Chang Confirmed By:PATRICIA SZYMANSKI MD
--- NOTE | 2020-10-27 10:18 | DCINST_ITS ---
- Discharge Diagnoses Current Active Problems: Current Active and Chronic Problems (Last Updated 10/25/20 @ 17:24 by Sugar Nolasco) Anxiety (Chronic) Chronic low back pain (Chronic) DDD (degenerative disc disease), lumbar (Chronic) STEMI (ST elevation myocardial infarction) (Acute) You will use the following diet at home:: Cardiac Your food should be the consistency of: Regular Discharge Activity: Return to Normal Activity Weight Bearing Status: Full weight bearing Call your doctor if you observe: Fever of 101 or Higher, Shortness of breath, Dizziness, Fainting spells, Chest pain, Increased palpitations (irregular heartbeat), Uncontrolled pain Allergies/Adverse Reactions: Allergies morphine Allergy (Verified 08/07/19 20:56) Swelling Sulfa (Sulfonamide Antibiotics) Allergy (Verified 08/07/19 20:56) Hives valdecoxib [From Bextra] Allergy (Verified 08/07/19 20:56) Hives diazepam [From Valium] Adverse Reaction (Verified 08/07/19 20:56) Itching Medications to take at Discharge Cyclobenzaprine HCl 1 tab PO QHS 10/25/20 Pregabalin [Lyrica] 300 mg PO BID 10/25/20 busPIRone [Buspar] 15 mg PO TID 10/25/20 ALPRAZolam [Xanax] 1 mg PO DAILY PRN PRN #10 tablet 10/27/20 Aspirin E.C. [Ecotrin] 81 mg PO DAILY@0800 #90 tab 10/27/20 Atorvastatin Calcium [Lipitor] 40 mg PO QHS #90 tab 10/27/20 Metoprolol Tartrate [Lopressor (beta kiara)] 12.5 mg PO BID #90 tab 10/27/20 Oxycodone HCl/Acetaminophen [Oxycodone-Acetaminophen 5-325] 1 ea PO TID PRN 4 Days #10 tablet 10/27/20 Sertraline HCl [Zoloft] 100 mg PO DAILY #30 tab 10/27/20 Ticagrelor [Brilinta] 90 mg PO BID #90 tab 10/27/20 The following prescriptions were given: Ticagrelor [Brilinta] 90 mg PO BID #90 tab Transmission Status: Pending to [facility] . Aspirin E.C. [Ecotrin] 81 mg PO DAILY@0800 #90 tab Transmission Status: Pending to [address] Atorvastatin Calcium [Lipitor] 40 mg PO QHS #90 tab Transmission Status: Pending to [address] Metoprolol Tartrate [Lopressor (beta kiara)] 12.5 mg PO BID #90 tab Transmission Status: Pending to [address] Oxycodone HCl/Acetaminophen [Oxycodone-Acetaminophen 5-325] 1 ea PO TID PRN 4 Days #10 tablet PRN Reason: Pain Score 6-10 Transmission Status: Received by [address] ALPRAZolam [Xanax] 1 mg PO DAILY PRN PRN #10 tablet PRN Reason: Anxiety/Restlessness/Sleep Transmission Status: Received by [address] Sertraline HCl [Zoloft] 100 mg PO DAILY #30 tab Transmission Status: Pending to [address] Primary Care Physician: Care Physician,No Primary [NON-STAFF] - Please follow up with your Primary Care Physician in: 1 week. Test Results: Test results from this visit will be discussed in further detail at your follow- up appointment, if applicable. Please Follow Up With: Leela Hurley, PA Please Follow Up With: Mark Farias MD When: 2-3 weeks.
--- NOTE | 2020-10-27 11:28 | PCM.CONS.C ---
Reason for Consult History of Present Illness: The patient is a 54 year old F [] Past Medical History Allergies/Adverse Reactions: Allergies morphine Allergy (Verified 08/07/19 20:56) Swelling Sulfa (Sulfonamide Antibiotics) Allergy (Verified 08/07/19 20:56) Hives valdecoxib [From Bextra] Allergy (Verified 08/07/19 20:56) Hives diazepam [From Valium] Adverse Reaction (Verified 08/07/19 20:56) Itching Home Medications: Ambulatory Orders Medication Instructions Recorded Cyclobenzaprine HCl 1 tab PO QHS 10/25/20 Pregabalin [Lyrica] 300 mg PO BID 10/25/20 busPIRone [Buspar] 15 mg PO TID 10/25/20 ALPRAZolam [Xanax] 1 mg PO DAILY PRN PRN #10 tab 10/27/20 Aspirin E.C. [Ecotrin] 81 mg PO DAILY@0800 #90 tab 10/27/20 Atorvastatin Calcium [Lipitor] 40 mg PO QHS #90 tab 10/27/20 Metoprolol Tartrate [Lopressor 12.5 mg PO BID #90 tab 10/27/20 (beta kiara)] Oxycodone HCl/Acetaminophen 1 ea PO TID PRN 4 Days #10 tab 10/27/20 [Oxycodone-Acetaminophen 5-325] Sertraline HCl [Zoloft] 100 mg PO DAILY #30 tab 10/27/20 Ticagrelor [Brilinta] 90 mg PO BID #90 tab 10/27/20 Past Medical History (Chronic Problems): Chronic Problems (Last Updated 10/25/20 @ 17:24 by Sugar Nolasco) Presence of stent in coronary artery (Chronic ~10/25/20) Successful percutaneous coronary intervention of the culprit lesion With moderate thrombus in the mid RCA. Predilated with 2.5 x 20 mm balloon, followed by placement of drug-eluting stent Synergy 3 x 32 mm per cath 10/25/20 Atherosclerotic heart disease of [place] coronary artery without angina pectoris (Chronic) Anxiety (Chronic) Chronic low back pain (Chronic) DDD (degenerative disc disease), lumbar (Chronic) Surgical History: - - back - *Family History Maternal History Items: Cancer Paternal History Items: Stroke Smoking Status: Current every day smoker Tobacco Use: Cigarettes Alcohol: None Drugs: None Objective: Vital Signs Temp Pulse Resp BP Pulse Ox 97.2 F L 77 16 106/74 96 10/27/20 08:15 10/27/20 11:07 10/27/20 11:07 10/27/20 11:07 10/27/20 11:07 Oxygen Flow Rate (L/min) 2 Oxygen Delivery Method Room Air Weight: 216 lb 0.848 oz Body Mass Index (BMI) 38.2 Intake and Output for Last 24 Hours 10/25/20 10/26/20 10/27/20 23:59 23:59 23:59 Intake Total 1859.67 / 1859.67 1590 / 1830 360 / 360 Output Total 1100 / 1100 1325 / 1325 Balance 759.67 / 759.67 265 / 505 360 / 360 Rhythm: EKG: ECHO: Stress Test: Cardiac Cath: PCI: CT Surgery: Holter monitor: EPS: PPM: CXR: Chest CT Scan: Assessment/Plan Reason for Consultation: [] History Of Present Illness: Patient is a [AGE] [SEX} seen today for [ ] Review of Systems: Constitution: Denies fatigue, recent fever or chills. HEENT: Denies vision changes, Denies hearing loss, Denies throat pain CV: See HPI Resp: [ ]. GI: Denies nausea, heartburn or melena. : Denies hematuria. Extremities: Denies edema. Neuro: Denies syncope or pre-syncopal symptoms. Heme: Denies easy bruising or bleeding Musculo: Denies neck pain, Denies back pain Skin: Denies rashes, Denies itching Physical Exam: Vitals: [VITALS] General: Alert and oriented, in no acute distress HEENT: Normocephalic, atraumatic Neck: Supple, normal ROM, no carotid bruits Cardiac: [ ] Respiratory: [] GI: Abdomen soft, non tender, obese abdomen Lower Extremity: No cyanosis [ ] edema, no wounds Skin: Warm and dry, no rash Vascular: [] Neurological: Alert and oriented, CN grossly intact, non-focal exam Assessment: [] Plan: []
--- NOTE | 2020-10-27 12:00 | PCM.DC.SUM ---
Discharge Date and Diagnosis - Problem List Patient Problems: Active and Suspected Problems (Last Updated 10/25/20 @ 17:24 by Sugar Nolasco) STEMI (ST elevation myocardial infarction) (Acute) Date of Admission: 10/25/20 Date of Discharge: 10/27/20 - Primary Discharge Diagnosis Acute Problems: Active Problems (Last Updated 10/25/20 @ 17:24 by Sugar Nolasco) Acute STEMI (ST elevation myocardial infarction), status post PTCA/ MELQUIADES to mid RCA. - Secondary Discharge Diagnosis Chronic Problems: Chronic Problems (Last Updated 10/25/20 @ 17:24 by Sugar Nolasco) Presence of stent in coronary artery (Chronic ~10/25/20) Successful percutaneous coronary intervention of the culprit lesion With moderate thrombus in the mid RCA. Predilated with 2.5 x 20 mm balloon, followed by placement of drug-eluting stent Synergy 3 x 32 mm per cath 10/25/20 Atherosclerotic heart disease of [place] coronary artery without angina pectoris (Chronic) Anxiety (Chronic) Chronic low back pain (Chronic) DDD (degenerative disc disease), lumbar (Chronic) Hospital Course and Treatment Imaging Results: Clinical Impression(s) from Imaging Studies Chest X-Ray 10/25/20 14:10 IMPRESSION: Normal x-ray examination of the chest. Electronically Signed: Mitch Wilhelm MD at 14:29 EST , Service support , Dr. Chang, cardiology. Procedures: 2-D Echocardiogram, Cardiac catheterization, EKG Summary of Care Provided: Patient seen and examined on the day of discharge and appeared to be stable to be discharged home. She denied any more chest pain, no shortness of breath. Denied dizziness, lightheadedness upon ambulation. Her vital signs are stable. The patient is a 54 year old F presented to the emergency room because of chest pain and she was found to have findings consistent with acute ST elevation [place]. Her EKG revealed ST elevation in the inferior leads with reciprocal ST segment depression. She underwent emergent cardiac catheterization, found to have mid RCA thrombus, underwent PTCA/MELQUIADES to mid RCA. Patient was admitted to intensive care unit, started on aspirin, Brilinta, statins and beta-blockers. Repeat EKG after the cardiac catheterization and placement of the stent revealed resolution of the ST elevation on the inferior leads. Patient had no more chest pain after the stent placement. Her routine blood work was unremarkable apart from mild hypokalemia which was replaced and corrected. LFT was unremarkable. Lipid profile revealed total cholesterol of 215, LDL cholesterol of 119 and HDL cholesterol of 60. Serum test was negative. 2D echocardiogram revealed segmental wall dysfunction with preserved EF, ejection fraction was 55%. With medications, patient had no symptoms apart from mild dizziness which resolved. Her vital signs remained stable. Patient discharged home in a stable medical condition, discharged on aspirin, Brilinta, Lipitor and metoprolol, continued on her previous medications without any changes, plan to follow-up with cardiology in 2 to 3 weeks, recommended follow-up with PCP in 1 week. Patient Problems: Active and Suspected Problems (Last Updated 10/25/20 @ 17:24 by Sugar Nolasco) STEMI (ST elevation myocardial infarction) (Acute) - Physical Exam Vitals/I&O's: Vital Signs Temp Pulse Resp BP Pulse Ox 97.2 F L 77 16 106/74 96 10/27/20 08:15 10/27/20 11:07 10/27/20 11:07 10/27/20 11:07 10/27/20 11:07 Oxygen Flow Rate (L/min) 2 Oxygen Delivery Method Room Air Weight: 216 lb 0.848 oz Body Mass Index (BMI) 38.2 Intake and Output for Last 24 Hours 10/25/20 10/26/20 10/27/20 23:59 23:59 23:59 Intake Total 1859.67 / 1859.67 1590 / 1830 360 / 360 Output Total 1100 / 1100 1325 / 1325 Balance 759.67 / 759.67 265 / 505 360 / 360 General: Alert, Oriented x3, Cooperative, No apparent distress HEENT: Atraumatic, PERRLA, EOMI, Normocephalic Oral: Moist Mucosa, No Gingival or Mucosal Lesions/ Ulcerations Neck: Supple, No JVD, Negative Carotid Bruits, Trachea Midline, Thyroid Normal Size and Texture Lungs: Clear to auscultation, Normal air movement, No rhonchi, No wheeze, No rales Cardiovascular: Regular rate, Regular Rhythm, Normal S1, Normal S2, PMI Normal Abdomen: Bowel Sounds Present, Soft, Non Tender, Non-Distended, No Hepato-splenomegaly Extremities: No clubbing, No cyanosis, No edema Skin: No rashes, No breakdown Lymphatic: No Cervical, Supraclavicular, or Inguinal Adenopathy Neurological: Cranial nerves II-XII grossly intact, Neuro grossly intact Psych/Mental Status: Normal Affect, Appropriate Discharge Activity: Return to Normal Activity Weight Bearing Status: Full weight bearing Call your doctor if you observe: Fever of 101 or Higher, Shortness of breath, Dizziness, Fainting spells, Chest pain, Increased palpitations (irregular heartbeat), Uncontrolled pain Home Medications: Medications to take at Discharge Cyclobenzaprine HCl 1 tab PO QHS 10/25/20 Pregabalin [Lyrica] 300 mg PO BID 10/25/20 busPIRone [Buspar] 15 mg PO TID 10/25/20 ALPRAZolam [Xanax] 1 mg PO DAILY PRN PRN #10 tab 10/27/20 Aspirin E.C. [Ecotrin] 81 mg PO DAILY@0800 #90 tab 10/27/20 Atorvastatin Calcium [Lipitor] 40 mg PO QHS #90 tab 10/27/20 Metoprolol Tartrate [Lopressor (beta darshan)] 12.5 mg PO BID #90 tab 10/27/20 Oxycodone HCl/Acetaminophen [Oxycodone-Acetaminophen 5-325] 1 ea PO TID PRN 4 Days #10 tab 10/27/20 Sertraline HCl [Zoloft] 100 mg PO DAILY #30 tab 10/27/20 Ticagrelor [Brilinta] 90 mg PO BID #90 tab 10/27/20 Following Prescriptions Were Given to Patient: Ticagrelor [Brilinta] 90 mg PO BID #90 tab Transmission Status: Received by [facility]. Aspirin E.C. [Ecotrin] 81 mg PO DAILY@0800 #90 tab Transmission Status: Received by [facility] Atorvastatin Calcium [Lipitor] 40 mg PO QHS #90 tab Transmission Status: Received by [facility] [facility] Metoprolol Tartrate [Lopressor (beta darshan)] 12.5 mg PO BID #90 tab Transmission Status: Received by [facility] [facility] Oxycodone HCl/Acetaminophen [Oxycodone-Acetaminophen 5-325] 1 ea PO TID PRN 4 Days #10 tab PRN Reason: Pain Score 6-10 Transmission Status: Received by [facility]. ALPRAZolam [Xanax] 1 mg PO DAILY PRN PRN #10 tab PRN Reason: Anxiety/Restlessness/Sleep Transmission Status: Received by [facility] [facility]. Sertraline HCl [Zoloft] 100 mg PO DAILY #30 tab Transmission Status: Received by [facility] [facility]. Primary Care Physician: Care Physician,No Primary [NON-STAFF] - Please follow up with your Primary Care Physician in: 1 week. Please Follow Up With: Leela Hurley, PA Please Follow Up With: Mark Farias MD When: 2-3 weeks. Disposition: Home Minutes spent on discharge:: 32 Patient Condition:: Stable Medical Necessity - Tobacco Use Smoking Status: Current every day smoker Tobacco Use: Cigarettes Meaningful Use Info Meaningful Use Diagnoses (Choose all that apply): AMI - AMI/Post PCI/Angioplasty Aspirin given w/in 24hrs of arrival?: Yes ASA at discharge?: Yes Antiplatelet Therapy at Discharge:: Yes Statins at discharge?: Yes Gustavo/ARB at discharge?: No Reason Gustavo/ARB not ordered:: Not indicated Beta Darshan at discharge?: Yes Done w/ Acute [place] measure.: Yes Documented LVEF (%): 55 Inpatient E&M: 87716 Disch Hosp
== END 2020-10-27 11:40 | disposition home or self-care (01) | DRG 247 ==
LOC: ED 12:42 → ICU 13:30
PROVIDERS: Admitting Provider Hospitalist; Emergency Provider Emergency Medicine; PCP Physician Assistant; Referring Provider Internal Medicine Interventional Cardiology; Visit Provider Hospitalist
DX: I21.19 ST elevation (STEMI) myocardial infarction involving other coronary artery of inferior wall (principal); I25.10 Atherosclerotic heart disease of native coronary artery without angina pectoris; E87.6 Hypokalemia; M51.36 Other intervertebral disc degeneration, lumbar region; G89.29 Other chronic pain; F32.9 Major depressive disorder, single episode, unspecified; F41.9 Anxiety disorder, unspecified; F17.210 Nicotine dependence, cigarettes, uncomplicated; Z79.899 Other long term (current) drug therapy; Z79.02 Long term (current) use of antithrombotics/antiplatelets; Z79.82 Long term (current) use of aspirin
CPT/HCPCS: 71045; 80048; 80053; 80061; 84484; 84703; 85025; 85027; 92941; 93005; 93306; 93454; 99406; J7030; Q9957; Q9967; A4216; C1725; C1769; C1874; C1887; C1894; C9606

== ENCOUNTER 2021-01-11 11:18 | Emergency (ER) | payer MEDICARE, SELFPAY ==
[2020-11-16 14:23] VITALS: BMI 35.6
[2021-01-11 11:20] VITALS: BP 126/87; PULSE 99; RESP 20; TEMP 36; O2SAT 98; BMI 36.3
--- NOTE | 2021-01-11 11:44 | ED.VIS.BACK ---
HPI History of Present Illness Chief Complaint: Back Narrative Narrative: Patient presenting for evaluation secondary to low back pain. Patient has a history of chronic low back pain with degenerative disc disease, she does see a pain management physician at [facility] and is on chronic tramadol. She reports that she has been having an exacerbation of her lower back pain over the course of about the last week. States is associated with low back pain with radiation down her left leg. She denies any bowel or bladder incontinence or saddle anesthesia. She denies any numbness. She does state that she feels somewhat weak but this is secondary to pain. Patient denies any fevers chills night sweats or unintended weight loss. Patient did have some trigger point injections but no spinal injections. She is not able to get spinal injections for another year because she had a ST elevation myocardial infarction in October and is on dual antiplatelet therapy. Patient states that she added Tylenol as well as other conservative management measures at home and it did not seem to alleviate her symptoms. No history of IV drug abuse. Review of systems otherwise negative. [facility] Medical History (Updated 01/11/21 @ 12:[address] Damien Smith MD) Anxiety Atherosclerotic heart disease of [place] coronary artery without angina pectoris Chronic low back pain DDD (degenerative disc disease), lumbar Depression Fibromyalgia Presence of stent in coronary artery (~10/25/20) STEMI (ST elevation myocardial infarction) Home Medications buspirone 15 mg PO TID 10/25/20 [History Last Taken 10/24/20] cyclobenzaprine 1 tab PO QHS 10/25/20 [History Last Taken Unknown] pregabalin 300 mg PO BID 10/25/20 [History Last Taken 10/24/20] alprazolam 1 mg PO DAILY PRN PRN #10 tab 10/27/20 [Rx Last Taken Unknown] aspirin 81 mg PO DAILY@0800 #90 tab 10/27/20 [Rx Last Taken Unknown] atorvastatin 40 mg PO QHS #90 tab 10/27/20 [Rx Last Taken Unknown] sertraline 100 mg PO DAILY #30 tab 10/27/20 [Rx Last Taken Unknown] clopidogrel 75 mg tablet 75 mg PO DAILY #90 tab 11/16/20 [Rx Last Taken Unknown] metoprolol tartrate 25 mg tablet 12.5 mg PO .ON HOLD #90 tablet 11/28/20 [Rx Last Taken Unknown] oxycodone-acetaminophen [Percocet] 1 tab PO Q8H PRN 3 Days #9 tab 01/11/21 [Rx Last Taken Unknown] Allergy/AdvReac Type Severity Reaction Status Date / Time morphine Allergy Swelling Verified 01/11/21 11:20 Sulfa (Sulfonamide Allergy Hives Verified 01/11/21 11:20 Antibiotics) valdecoxib [From Bextra] Allergy Hives Verified 01/11/21 11:20 diazepam [From Valium] AdvReac Itching Verified 01/11/21 11:20 Surgical History Fusion of lumbar spine Presence of coronary angioplasty implant and graft (~10/25/20) Social History Smoking Status: Current every day smoker alcohol intake: never substance use type: does not use caffeine: Yes Type: coffee Number of servings: 1 ROS ROS ED Constitutional Constitutional ED: Reports other Details: Denies recent surgeries, or injections ; Denies chills, fever(s), sweats or weight loss Cardiovascular Cardiovascular: Denies chest pain Respiratory/Chest Respiratory/Chest: Denies dyspnea Gastrointestinal Gastrointestinal: Reports other Details: Denies Bowel Incontinence ; Denies abdominal pain Genitourinary Genitourinary ED: Reports other Details: Denies Bladder Incontinence Musculoskeletal Musculoskeletal: Reports back pain Integumentary Reports other Details: No Petechiae ; Denies rash Neurologic Neurologic: Reports other Details: Denies Numbness, or Weakness Psychiatric Psychiatric: Reports other Details: Denies history of IV Drug abuse Hematologic/Lymphatic Hematologic/Lymphatic: Denies lymphadenopathy EXAM Physical Exam Const Vital Signs: 01/11/21 11:20 Temperature 96.8 F L Temperature Source Temporal Pulse Rate 99 Respiratory Rate 20 H Blood Pressure 126/87 H Blood Pressure Mean 100 Pulse Ox 98 Oxygen Delivery Method Room Air Positive well nourished and well developed General Appearance ED: well developed and NAD HEENT Reports normocephalic and head/scalp atraumatic Eyes EOMs intact bilaterally Neck supple Resp normal respiratory effort and clear to auscultation bilaterally Cardio regular rate, regular rhythm and no murmurs Bruits: other Other Details: 2+ Radial Pulses 2+ DP Pulses 2+ PT Pulses Peripheral Pulses: radial pulses present, posterior tibial pulses present and dorsalis pedis pulses present GI normal to inspection, nondistended, normoactive bowel sounds, soft to palpation and non-tender Palpation: Negative for pulsatile mass Back/Spine normal to inspection Thoracic Spine / Upper Back: Negative for thoracic spinal tenderness Lumbar Spine / Lower Back: straight leg raise positive right and straight leg raise positive - left; Negative for lumbar spinal tenderness Extremity normal to inspection Neuro oriented x3 and no sensory deficits noted Neuro Narrative: Motor: Patient appears to have good strength at the hip and knee but was unable to fully participate in the exam secondary to level of pain Dorsiflexion Plantar Flexion Extensor Hallicus longus Sensorium / Orientation: alert Sensory Exam: other Motor Exam: strength 5/5 throughout Deep Tendon Reflexes: Rt Patellar (L4): 2+, Lt Patellar (L4): 2+, Rt Ankle (S1): 2+ and Lt Ankle (S1): 2+ Deep Tendon Reflexes Back: Rt Patellar (L4): 2+, Lt Patellar (L4): 2+, Rt Ankle (S1): 2+ and Lt Ankle (S1): 2+ Plantar Reflex: Other: bilateral (No pathologic clonus) Psych mental status grossly normal Skin no rashes or lesions noted Trauma: other No petechiae MDM MDM MDM Narrative Medical decision making narrative: Patient presented secondary to exacerbation of her back pain. There are no red flag signs or symptoms her pain does seem radicular in nature. Patient is allergic to morphine she was given IM Dilaudid as well as Norflex. Repeat evaluation of the patient at 1300 shows symptomatic improvement. Patient's prescription reporting record was reviewed, it seems consistent with her history. She tells me that her pain physician does state that it is okay for her to receive a breakthrough medication at this point. Patient will be provided with Percocet. Patient was discharged in improved condition. Discharge Plan Triage Chief Complaint: Back Other Complaint: Meds Only ED Provider: Damien Smith Dx/Rx/DC Orders Clinical Impression: Acute left lumbar radiculopathy Instructions: ED Back Pain (Acute or Chronic) Prescriptions: New oxycodone-acetaminophen [Percocet] 5-325 mg tablet 1 tab PO Q8H PRN (Reason: pain) 3 Days Qty: 9 RF: 0 No Action clopidogrel 75 mg tablet 75 mg PO DAILY Qty: 90 RF: 3 cyclobenzaprine 10 MG tablet 1 tab PO QHS RF: 0 buspirone 15 MG tablet 15 mg PO TID RF: 0 pregabalin 300 MG capsule 300 mg PO BID RF: 0 atorvastatin 40 MG tablet 40 mg PO QHS Qty: 90 RF: 0 aspirin 81 MG tablet 81 mg PO DAILY@0800 Qty: 90 RF: 0 alprazolam 0.5 MG tablet 1 mg PO DAILY PRN PRN (Reason: Anxiety/Restlessness/Sleep) Qty: 10 RF: 0 sertraline 100 MG tablet 100 mg PO DAILY Qty: 30 RF: 0 metoprolol tartrate 25 mg tablet 12.5 mg PO .ON HOLD Qty: 90 RF: 0 Primary Care Provider: Care Physician,No Primary Referrals: Care Physician,No Primary [Primary Care Provider] - Activity Restrictions/Additional Instructions: Follow-up with your pain management doctor as soon as possible Disposition Disposition: Home, self care
[2021-01-11] MEDS: HYDROmorphone 1 MG/ML Syringe IM (11:50)
[2021-01-11] MEDS: Orphenadrine 60 MG/2 ML Ampul IM (11:50)
== END 2021-01-11 13:19 | disposition home or self-care (01) ==
PROVIDERS: Emergency Provider Emergency Medicine
DX: M51.16 Intervertebral disc disorders with radiculopathy, lumbar region (principal); M54.5 Low back pain; G89.29 Other chronic pain; I25.10 Atherosclerotic heart disease of native coronary artery without angina pectoris; M79.7 Fibromyalgia; F32.9 Major depressive disorder, single episode, unspecified; F41.9 Anxiety disorder, unspecified; F17.200 Nicotine dependence, unspecified, uncomplicated; Z79.82 Long term (current) use of aspirin; Z79.02 Long term (current) use of antithrombotics/antiplatelets; Z79.899 Other long term (current) drug therapy; I25.2 Old myocardial infarction; Z95.5 Presence of coronary angioplasty implant and graft
CPT/HCPCS: 96372; 99282